=== PATIENT | male | born 1940 | race Caucasian/White ===

== ENCOUNTER 2019-08-27 11:38 | Inpatient (IN) ==
[2019-08-29] MEDS ORDERED: D5% in Water 1,000 ML IVC PRN (16:34)
[2019-08-29] MEDS ORDERED: Dextrose Gel 15 GM/37.5 ML TUBE PO PRN ×2 (16:34)
[2019-08-29] MEDS ORDERED: *HR* Dextrose 50 % in Water (Syg) 50 ML SYRINGE IVP PRN (16:34)
[2019-08-29] MEDS ORDERED: Hyoscyamine SL 0.125 MG TAB.SUBL GTUBE PRN (16:37)
[2019-08-29] MEDS ORDERED: Ipratropium/Albuterol Neb 3 ML IH PRN (16:37)
[2019-08-29] MEDS ORDERED: *HR* Alteplase (Cathflo) 2 MG VIAL IVP PRN (16:37)
[2019-08-29] MEDS ORDERED: ALPRAZolam 0.25 MG TABLET GTUBE PRN (16:37)
[2019-08-29] MEDS ORDERED: Saliva Stimulant 100ml BOTTLE MM PRN (16:37)
[2019-08-29] MEDS: *HR* Heparin 5,000 UNIT/ML VIAL SQ SCH (22:11)
[2019-08-29] MEDS: Melatonin 3 MG TABLET GTUBE SCH (22:11)
[2019-08-29] MEDS: Celecoxib 100 MG CAPSULE PO SCH (22:11)
[2019-08-29] MEDS: Lactobacillus 1 EACH CAP.SPRINK GTUBE SCH (22:11)
[2019-08-29] MEDS: Potassium Chloride Elixir 20 MEQ/15 ML UDC GTUBE SCH (22:12)
[2019-08-30] MEDS: Fluconazole 400 MG/200 ML 400 MG/200 ML BAG IVPB SCH (01:20)
[2019-08-30] MEDS: *HR* Heparin 5,000 UNIT/ML VIAL SQ SCH ×3 (05:41→23:10)
[2019-08-30] MEDS: *HR* HYDROcodone/Acet 5/325 mg TABLET PO PRN ×2 (05:41→16:40)
[2019-08-30 05:54] LABS: Basophils # 0.1 K/mcL (0.0-0.2); Basophils % 0.6 %; Eosinophils # 0.6 K/mcL (0.0-0.6); Eosinophils % 4.1 %; Hematocrit 23.3 % (37.5-50.1); Hemoglobin 7.6 g/dL (12.9-16.9); Immature Granulocytes % 8.6 % (0-4); Mean Corpuscular HGB Conc 32.6 g/dL (31.6-35.5); Mean Corpuscular Hemoglobin 27.5 pg (28.0-33.3); Mean Corpuscular Volume 84.4 fL (83.0-100.0); Mean Platelet Volume 8.5 fL (9.4-12.4); Monocytes # 1.7 K/mcL (0.0-1.3); Monocytes % 10.8 %; Neutrophils # 7.7 K/mcL (1.6-8.9); Platelet Count 409 K/mcL (140-400); Red Blood Count 2.76 M/mcL (4.19-5.50); Red Cell Distribution Width 16.7 % (11.5-14.5); Segmented Neutrophils % 49.9 %; White Blood Count 15.4 K/mcL (4.3-11.1)
[2019-08-30] MEDS: Insulin LISPRO 300 UNITS/3 ML VIAL SQ SCH ×3 (08:31→16:41)
[2019-08-30] MEDS: carvediloL 6.25 MG TABLET GTUBE SCH ×2 (08:40→16:40)
[2019-08-30] MEDS: Lactobacillus 1 EACH CAP.SPRINK GTUBE SCH ×2 (08:40→23:09)
[2019-08-30] MEDS: Trolamine Salicylate/Aloe Vera 85 APPL/85 GM TUBE TP SCH (08:40)
[2019-08-30] MEDS: Potassium Chloride Elixir 20 MEQ/15 ML UDC GTUBE SCH ×2 (08:40→23:10)
[2019-08-30] MEDS: Furosemide 40 MG TABLET PO SCH (08:40)
[2019-08-30] MEDS: Ferrous Sulfate Oral Soln 300 MG/5 ML UDC GTUBE SCH ×3 (08:42→23:10)
[2019-08-30] MEDS ORDERED: Pantoprazole 40 MG VIAL IVC SCH (09:00)
[2019-08-30] MEDS ORDERED: ANIDULAFUNGIN 100 MG IV SCH (09:00)
[2019-08-30 12:53] LABS: Alanine Aminotransferase 109 Units/L (7-52); Albumin 2.6 g/dL (3.5-5.7); Albumin/Globulin Ratio 0.8 (1.1-2.2); Alkaline Phosphatase 120 Units/L (34-104); Aspartate Amino Transferase 97 Units/L (13-39); BUN/Creatinine Ratio 24 (6-26); Bilirubin,Total 0.3 mg/dL (0.3-1.0); Blood Urea Nitrogen 18 mg/dL (8-23); Carbon Dioxide 28 mEq/L (23-29); Chloride 90 mEq/L (98-107); Globulin 3.4 g/dL (2.4-3.5); Glucose 100 mg/dL (70-105); Osmolality,Calculated 268 (280-300); Potassium 4.4 mEq/L (3.5-5.1); Sodium 128 mEq/L (136-145); eGFR For African Americans > 60 (> 60); eGFR For Non-African Americans > 60 (> 60)
[2019-08-30] MEDS: Pantoprazole 40 MG VIAL IVP SCH (13:41)
[2019-08-30] MEDS: Celecoxib 100 MG CAPSULE PO SCH (23:09)
[2019-08-30] MEDS: Melatonin 3 MG TABLET GTUBE SCH (23:10)
[2019-08-31] MEDS: Fluconazole 400 MG/200 ML 400 MG/200 ML BAG IVPB SCH (00:25)
[2019-08-31] MEDS: *HR* Heparin 5,000 UNIT/ML VIAL SQ SCH ×3 (06:07→22:45)
[2019-08-31 06:11] LABS: Thyroid Stimulating Hormone 74.002 mcIU/mL (0.340-5.600)
[2019-08-31] MEDS: Insulin LISPRO 300 UNITS/3 ML VIAL SQ SCH ×3 (08:17→17:38)
[2019-08-31] MEDS: Potassium Chloride Elixir 20 MEQ/15 ML UDC GTUBE SCH ×2 (08:18→22:45)
[2019-08-31] MEDS: Pantoprazole 40 MG VIAL IVP SCH (08:19)
[2019-08-31] MEDS: carvediloL 6.25 MG TABLET GTUBE SCH ×2 (08:19→17:40)
[2019-08-31] MEDS: Lactobacillus 1 EACH CAP.SPRINK GTUBE SCH ×2 (08:19→22:45)
[2019-08-31] MEDS: Ferrous Sulfate Oral Soln 300 MG/5 ML UDC GTUBE SCH ×3 (08:19→22:45)
[2019-08-31] MEDS: Trolamine Salicylate/Aloe Vera 85 APPL/85 GM TUBE TP SCH (08:19)
[2019-08-31] MEDS: Furosemide 40 MG TABLET PO SCH (08:19)
[2019-08-31] MEDS: Melatonin 3 MG TABLET GTUBE SCH (22:45)
[2019-08-31] MEDS: Celecoxib 100 MG CAPSULE PO SCH (22:45)
[2019-09-01] MEDS: Fluconazole 400 MG/200 ML 400 MG/200 ML BAG IVPB SCH
[2019-09-01] MEDS: *HR* Heparin 5,000 UNIT/ML VIAL SQ SCH ×3 (06:45→21:02)
[2019-09-01] MEDS ORDERED: Thyroid (Amour) 30 MG TABLET PO SCH ×2 (09:00)
[2019-09-01] MEDS: Insulin LISPRO 300 UNITS/3 ML VIAL SQ SCH ×3 (09:19→17:25)
[2019-09-01] MEDS: Ferrous Sulfate Oral Soln 300 MG/5 ML UDC GTUBE SCH ×3 (09:22→21:01)
[2019-09-01] MEDS: Trolamine Salicylate/Aloe Vera 85 APPL/85 GM TUBE TP SCH (09:22)
[2019-09-01] MEDS: Lactobacillus 1 EACH CAP.SPRINK GTUBE SCH ×2 (09:22→21:02)
[2019-09-01] MEDS: carvediloL 6.25 MG TABLET GTUBE SCH ×2 (09:22→17:33)
[2019-09-01] MEDS: Potassium Chloride Elixir 20 MEQ/15 ML UDC GTUBE SCH ×2 (09:22→21:01)
[2019-09-01] MEDS: Furosemide 40 MG TABLET PO SCH (09:22)
[2019-09-01] MEDS: Pantoprazole 40 MG VIAL IVP SCH (09:22)
[2019-09-01] MEDS: Thyroid (Amour) 30 MG TABLET PO SCH ×2 (11:37→23:22)
[2019-09-01] MEDS: Melatonin 3 MG TABLET GTUBE SCH (21:03)
[2019-09-01] MEDS: Celecoxib 100 MG CAPSULE PO SCH (21:03)
[2019-09-01] MEDS: Micafungin 100 MG in 0.9 % Sodium Chloride Mini Bag 100 ML IVPB SCH (23:22)
[2019-09-02] MEDS: *HR* Heparin 5,000 UNIT/ML VIAL SQ SCH ×3 (05:22→22:33)
[2019-09-02 05:31] LABS: Hematocrit 22.9 % (37.5-50.1); Hemoglobin 7.4 g/dL (12.9-16.9); Mean Corpuscular HGB Conc 32.3 g/dL (31.6-35.5); Mean Corpuscular Hemoglobin 27.8 pg (28.0-33.3); Mean Corpuscular Volume 86.1 fL (83.0-100.0); Mean Platelet Volume 8.1 fL (9.4-12.4); Platelet Count 422 K/mcL (140-400); Red Blood Count 2.66 M/mcL (4.19-5.50); Red Cell Distribution Width 17.1 % (11.5-14.5); White Blood Count 16.3 K/mcL (4.3-11.1)
[2019-09-02 05:45] LABS: Alanine Aminotransferase 74 Units/L (7-52); Albumin 2.5 g/dL (3.5-5.7); Albumin/Globulin Ratio 0.8 (1.1-2.2); Alkaline Phosphatase 136 Units/L (34-104); Aspartate Amino Transferase 49 Units/L (13-39); BUN/Creatinine Ratio 24 (6-26); Bilirubin,Total 0.2 mg/dL (0.3-1.0); Blood Urea Nitrogen 20 mg/dL (8-23); Carbon Dioxide 31 mEq/L (23-29); Chloride 91 mEq/L (98-107); Globulin 3.2 g/dL (2.4-3.5); Glucose 127 mg/dL (70-105); Magnesium 2.2 mg/dL (1.6-2.6); Osmolality,Calculated 268 (280-300); Potassium 4.6 mEq/L (3.5-5.1); Sodium 127 mEq/L (136-145); Total Protein 5.7 g/dL (6.4-8.9); eGFR For African Americans > 60 (> 60); eGFR For Non-African Americans > 60 (> 60)
[2019-09-02] MEDS: Potassium Chloride Elixir 20 MEQ/15 ML UDC GTUBE SCH ×2 (09:03→21:52)
[2019-09-02] MEDS: Lactobacillus 1 EACH CAP.SPRINK GTUBE SCH ×2 (09:04→21:52)
[2019-09-02] MEDS: Furosemide 40 MG TABLET PO SCH (09:04)
[2019-09-02] MEDS: carvediloL 6.25 MG TABLET GTUBE SCH ×2 (09:04→15:26)
[2019-09-02] MEDS: Ferrous Sulfate Oral Soln 300 MG/5 ML UDC GTUBE SCH ×3 (09:04→21:52)
[2019-09-02] MEDS: Pantoprazole 40 MG VIAL IVP SCH (09:05)
[2019-09-02 09:08] LABS: Bilirubin,Urine Negative (Negative); Blood,Urine Negative (Negative); Clarity,Urine Clear (Clear); Color,Urine Yellow (Yellow); Glucose,Urine (UA) Normal (Normal); Ketones,Urine Negative (Negative); Leukocyte Esterase,Urine Negative (Negative); Nitrite,Urine Negative (Negative); Protein,Urine Negative (Neg-Trace); Specific Gravity,Urine 1.015 (1.010-1.025); Urobilinogen,Urine Normal (Normal)
[2019-09-02] MEDS: Thyroid (Amour) 30 MG TABLET PO SCH ×2 (09:14→21:51)
[2019-09-02] MEDS: Insulin LISPRO 300 UNITS/3 ML VIAL SQ SCH ×2 (09:14→12:00)
[2019-09-02] MEDS: Trolamine Salicylate/Aloe Vera 85 APPL/85 GM TUBE TP SCH (09:14)
[2019-09-02] MEDS: Celecoxib 100 MG CAPSULE PO SCH (21:51)
[2019-09-02] MEDS: Melatonin 3 MG TABLET GTUBE SCH (21:52)
[2019-09-03] MEDS: Micafungin 100 MG in 0.9 % Sodium Chloride Mini Bag 100 ML IVPB SCH (00:28)
[2019-09-03] MEDS: *HR* Heparin 5,000 UNIT/ML VIAL SQ SCH ×3 (05:13→21:55)
[2019-09-03] MEDS ORDERED: Acetaminophen 325 MG TABLET PO PRN (07:42)
[2019-09-03] MEDS ORDERED: Acetaminophen 650 MG RECTAL SUPP RC PRN (07:51)
[2019-09-03 08:04] LABS: Basophils # 0.1 K/mcL (0.0-0.2); Basophils % 0.4 %; Eosinophils # 0.6 K/mcL (0.0-0.6); Eosinophils % 3.7 %; Hematocrit 24.2 % (37.5-50.1); Hemoglobin 7.9 g/dL (12.9-16.9); Immature Granulocytes % 8.5 % (0-4); Lymphocytes # 4.1 K/mcL (0.6-4.6); Lymphocytes % 24.1 %; Mean Corpuscular HGB Conc 32.6 g/dL (31.6-35.5); Mean Corpuscular Hemoglobin 27.6 pg (28.0-33.3); Mean Corpuscular Volume 84.6 fL (83.0-100.0); Mean Platelet Volume 8.2 fL (9.4-12.4); Monocytes # 1.8 K/mcL (0.0-1.3); Monocytes % 10.9 %; Neutrophils # 8.8 K/mcL (1.6-8.9); Platelet Count 480 K/mcL (140-400); Red Blood Count 2.86 M/mcL (4.19-5.50); Red Cell Distribution Width 16.9 % (11.5-14.5); Segmented Neutrophils % 52.4 %; White Blood Count 16.8 K/mcL (4.3-11.1)
[2019-09-03 08:17] LABS: Alanine Aminotransferase 74 Units/L (7-52); Albumin 2.6 g/dL (3.5-5.7); Albumin/Globulin Ratio 0.8 (1.1-2.2); Alkaline Phosphatase 137 Units/L (34-104); Aspartate Amino Transferase 50 Units/L (13-39); BUN/Creatinine Ratio 23 (6-26); Bilirubin,Total 0.3 mg/dL (0.3-1.0); Blood Urea Nitrogen 20 mg/dL (8-23); Calcium 8.3 mg/dL (8.6-10.3); Carbon Dioxide 30 mEq/L (23-29); Chloride 91 mEq/L (98-107); Globulin 3.3 g/dL (2.4-3.5); Glucose 96 mg/dL (70-105); Osmolality,Calculated 268 (280-300); Potassium 4.8 mEq/L (3.5-5.1); Sodium 128 mEq/L (136-145); Total Protein 5.9 g/dL (6.4-8.9); eGFR For African Americans > 60 (> 60); eGFR For Non-African Americans > 60 (> 60)
[2019-09-03] MEDS: carvediloL 6.25 MG TABLET GTUBE SCH ×2 (11:00→18:19)
[2019-09-03] MEDS: Lactobacillus 1 EACH CAP.SPRINK GTUBE SCH ×2 (11:01→21:55)
[2019-09-03] MEDS: Trolamine Salicylate/Aloe Vera 85 APPL/85 GM TUBE TP SCH (11:01)
[2019-09-03] MEDS: Ferrous Sulfate Oral Soln 300 MG/5 ML UDC GTUBE SCH ×3 (11:01→21:55)
[2019-09-03] MEDS: Thyroid (Amour) 30 MG TABLET PO SCH ×2 (11:01→21:55)
[2019-09-03] MEDS: Pantoprazole 40 MG VIAL IVP SCH (11:02)
[2019-09-03] MEDS: Potassium Chloride Elixir 20 MEQ/15 ML UDC GTUBE SCH ×2 (11:02→21:55)
[2019-09-03] MEDS: Furosemide 40 MG TABLET PO SCH (11:02)
[2019-09-03] MEDS: 0.9 % Sodium Chloride 1,000 ML IVC SCH (14:28)
[2019-09-03] MEDS: Celecoxib 100 MG CAPSULE PO SCH (21:55)
[2019-09-03] MEDS: Melatonin 3 MG TABLET GTUBE SCH (21:55)
[2019-09-04] MEDS: Micafungin 100 MG in 0.9 % Sodium Chloride Mini Bag 100 ML IVPB SCH (00:30)
[2019-09-04] MEDS: 0.9 % Sodium Chloride 1,000 ML IVC SCH ×2 (03:10→18:11)
[2019-09-04] MEDS: *HR* Heparin 5,000 UNIT/ML VIAL SQ SCH ×3 (05:31→22:08)
[2019-09-04] MEDS: carvediloL 6.25 MG TABLET GTUBE SCH ×3 (09:51→18:10)
[2019-09-04] MEDS: Thyroid (Amour) 30 MG TABLET PO SCH ×3 (09:52→22:06)
[2019-09-04] MEDS: Lactobacillus 1 EACH CAP.SPRINK GTUBE SCH ×2 (09:53→22:06)
[2019-09-04] MEDS: Ferrous Sulfate Oral Soln 300 MG/5 ML UDC GTUBE SCH ×3 (09:53→22:07)
[2019-09-04] MEDS: Furosemide 40 MG TABLET PO SCH ×2 (09:53→11:06)
[2019-09-04] MEDS: Trolamine Salicylate/Aloe Vera 85 APPL/85 GM TUBE TP SCH (09:53)
[2019-09-04] MEDS: Potassium Chloride Elixir 20 MEQ/15 ML UDC GTUBE SCH ×2 (09:54→22:07)
[2019-09-04] MEDS: Pantoprazole 40 MG VIAL IVP SCH ×2 (09:54→11:05)
[2019-09-04] MEDS ORDERED: Furosemide 40 MG/4 ML VIAL IVP ONE (12:32)
[2019-09-04] MEDS: levoFLOXacin 500 MG/100 ML 500 MG/100 ML BAG IVPB SCH (14:43)
[2019-09-04] MEDS ORDERED: Acetaminophen 650 MG RECTAL SUPP RC PRN (21:56)
[2019-09-04] MEDS: Celecoxib 100 MG CAPSULE PO SCH (22:06)
[2019-09-04] MEDS: Melatonin 3 MG TABLET GTUBE SCH (22:07)
[2019-09-05] MEDS: Micafungin 100 MG in 0.9 % Sodium Chloride Mini Bag 100 ML IVPB SCH (00:38)
[2019-09-05] MEDS: *HR* Heparin 5,000 UNIT/ML VIAL SQ SCH ×3 (05:16→22:11)
[2019-09-05] MEDS: 0.9 % Sodium Chloride 1,000 ML IVC SCH ×2 (09:11→18:31)
[2019-09-05] MEDS: levoFLOXacin 500 MG/100 ML 500 MG/100 ML BAG IVPB SCH (09:12)
[2019-09-05] MEDS: Pantoprazole 40 MG VIAL IVP SCH (09:12)
[2019-09-05] MEDS: Trolamine Salicylate/Aloe Vera 85 APPL/85 GM TUBE TP SCH (09:29)
[2019-09-05] MEDS: Potassium Chloride Elixir 20 MEQ/15 ML UDC GTUBE SCH (10:41)
[2019-09-05] MEDS: carvediloL 6.25 MG TABLET GTUBE SCH ×2 (10:41→18:41)
[2019-09-05] MEDS: Furosemide 40 MG TABLET PO SCH (10:42)
[2019-09-05] MEDS: Thyroid (Amour) 30 MG TABLET PO SCH ×2 (10:42→19:53)
[2019-09-05] MEDS: Ferrous Sulfate Oral Soln 300 MG/5 ML UDC GTUBE SCH ×2 (10:42→18:41)
[2019-09-05] MEDS: Lactobacillus 1 EACH CAP.SPRINK GTUBE SCH (10:42)
[2019-09-05] MEDS: *HR* HYDROcodone/Acet 5/325 mg TABLET GTUBE PRN (11:26)
[2019-09-05 12:47] LABS: Alanine Aminotransferase 75 Units/L (7-52); Albumin 2.5 g/dL (3.5-5.7); Albumin/Globulin Ratio 0.7 (1.1-2.2); Alkaline Phosphatase 118 Units/L (34-104); Aspartate Amino Transferase 53 Units/L (13-39); BUN/Creatinine Ratio 14 (6-26); Bilirubin,Total 0.4 mg/dL (0.3-1.0); Blood Urea Nitrogen 13 mg/dL (8-23); Calcium 8.1 mg/dL (8.6-10.3); Carbon Dioxide 26 mEq/L (23-29); Chloride 95 mEq/L (98-107); Globulin 3.4 g/dL (2.4-3.5); Glucose 90 mg/dL (70-105); Osmolality,Calculated 268 (280-300); Potassium 4.2 mEq/L (3.5-5.1); Sodium 129 mEq/L (136-145); Total Protein 5.9 g/dL (6.4-8.9); eGFR For African Americans > 60 (> 60); eGFR For Non-African Americans > 60 (> 60)
[2019-09-05 12:58] LABS: Basophils # 0.1 K/mcL (0.0-0.2); Basophils % 0.4 %; Eosinophils # 0.4 K/mcL (0.0-0.6); Eosinophils % 3.2 %; Hematocrit 22.3 % (37.5-50.1); Hemoglobin 7.1 g/dL (12.9-16.9); Immature Granulocytes % 7.1 % (0-4); Lymphocytes # 2.9 K/mcL (0.6-4.6); Lymphocytes % 24.2 %; Mean Corpuscular HGB Conc 31.8 g/dL (31.6-35.5); Mean Corpuscular Volume 84.8 fL (83.0-100.0); Mean Platelet Volume 8.5 fL (9.4-12.4); Monocytes # 1.4 K/mcL (0.0-1.3); Monocytes % 11.8 %; Platelet Count 516 K/mcL (140-400); Red Blood Count 2.63 M/mcL (4.19-5.50); Red Cell Distribution Width 16.8 % (11.5-14.5); Segmented Neutrophils % 53.3 %; White Blood Count 11.9 K/mcL (4.3-11.1)
[2019-09-05 13:29] LABS: Neutrophils # 6.3 K/mcL (1.6-8.9)
[2019-09-05] MEDS: Melatonin 3 MG TABLET PO SCH (19:53)
[2019-09-05] MEDS: Lactobacillus 1 EACH CAP.SPRINK PO SCH (19:53)
[2019-09-05] MEDS: Celecoxib 100 MG CAPSULE PO SCH (19:53)
[2019-09-05] MEDS: Potassium Chloride Elixir 20 MEQ/15 ML UDC PO SCH (19:54)
[2019-09-05] MEDS: Ferrous Sulfate Oral Soln 300 MG/5 ML UDC PO SCH (19:54)
[2019-09-06] MEDS: Micafungin 100 MG in 0.9 % Sodium Chloride Mini Bag 100 ML IVPB SCH (00:08)
[2019-09-06] MEDS: *HR* Heparin 5,000 UNIT/ML VIAL SQ SCH ×3 (06:14→22:28)
[2019-09-06] MEDS: Potassium Chloride Elixir 20 MEQ/15 ML UDC PO SCH ×2 (09:21→20:46)
[2019-09-06] MEDS: carvediloL 6.25 MG TABLET PO SCH ×2 (09:21→16:20)
[2019-09-06] MEDS: Thyroid (Amour) 30 MG TABLET PO SCH ×2 (09:21→20:46)
[2019-09-06] MEDS: Lactobacillus 1 EACH CAP.SPRINK PO SCH ×2 (09:21→20:47)
[2019-09-06] MEDS: Trolamine Salicylate/Aloe Vera 85 APPL/85 GM TUBE TP SCH (09:22)
[2019-09-06] MEDS: Ferrous Sulfate Oral Soln 300 MG/5 ML UDC PO SCH ×3 (09:22→20:46)
[2019-09-06] MEDS: Furosemide 40 MG TABLET PO SCH (09:22)
[2019-09-06] MEDS: Pantoprazole 40 MG VIAL IVP SCH (09:22)
[2019-09-06] MEDS ORDERED: Water for inj. (sterile) 10 ML ONE (10:40)
[2019-09-06] MEDS: levoFLOXacin 750 MG/150 ML 750 MG/150 ML BAG IVPB SCH (11:42)
[2019-09-06] MEDS: Melatonin 3 MG TABLET PO SCH (20:47)
[2019-09-06] MEDS: Celecoxib 100 MG CAPSULE PO SCH (20:47)
[2019-09-06] MEDS: *HR* HYDROcodone/Acet 5/325 mg TABLET GTUBE PRN (22:38)
[2019-09-07] MEDS: Micafungin 100 MG in 0.9 % Sodium Chloride Mini Bag 100 ML IVPB SCH (00:13)
[2019-09-07] MEDS: *HR* Heparin 5,000 UNIT/ML VIAL SQ SCH ×3 (06:11→20:59)
[2019-09-07] MEDS: Ferrous Sulfate Oral Soln 300 MG/5 ML UDC PO SCH (08:34)
[2019-09-07] MEDS: Potassium Chloride Elixir 20 MEQ/15 ML UDC PO SCH (08:34)
[2019-09-07] MEDS: carvediloL 6.25 MG TABLET PO SCH ×2 (08:35→17:03)
[2019-09-07] MEDS: Furosemide 40 MG TABLET PO SCH (08:35)
[2019-09-07] MEDS: Thyroid (Amour) 30 MG TABLET PO SCH ×2 (08:35→20:59)
[2019-09-07] MEDS: Lactobacillus 1 EACH CAP.SPRINK PO SCH ×2 (08:35→20:59)
[2019-09-07] MEDS: Trolamine Salicylate/Aloe Vera 85 APPL/85 GM TUBE TP SCH (08:40)
[2019-09-07] MEDS: levoFLOXacin 750 MG/150 ML 750 MG/150 ML BAG IVPB SCH (12:57)
[2019-09-07] MEDS: Acetaminophen 325 MG TABLET PO PRN (18:27)
[2019-09-07] MEDS: Melatonin 3 MG TABLET PO SCH (20:59)
[2019-09-07] MEDS: Celecoxib 100 MG CAPSULE PO SCH (20:59)
[2019-09-08] MEDS: Micafungin 100 MG in 0.9 % Sodium Chloride Mini Bag 100 ML IVPB SCH (00:20)
[2019-09-08] MEDS: *HR* Heparin 5,000 UNIT/ML VIAL SQ SCH ×3 (05:58→21:04)
[2019-09-08] MEDS: Acetaminophen 325 MG TABLET PO PRN ×2 (05:59→21:03)
[2019-09-08] MEDS: carvediloL 6.25 MG TABLET PO SCH ×2 (08:12→17:14)
[2019-09-08] MEDS: Furosemide 40 MG TABLET PO SCH (08:12)
[2019-09-08] MEDS: Lactobacillus 1 EACH CAP.SPRINK PO SCH ×2 (08:12→21:04)
[2019-09-08] MEDS: Thyroid (Amour) 30 MG TABLET PO SCH ×2 (08:12→21:04)
[2019-09-08] MEDS: Trolamine Salicylate/Aloe Vera 85 APPL/85 GM TUBE TP SCH (09:54)
[2019-09-08] MEDS: levoFLOXacin 750 MG/150 ML 750 MG/150 ML BAG IVPB SCH (11:16)
[2019-09-08] MEDS: Celecoxib 100 MG CAPSULE PO SCH (21:03)
[2019-09-08] MEDS: Melatonin 3 MG TABLET PO SCH (21:04)
[2019-09-09] MEDS: Micafungin 100 MG in 0.9 % Sodium Chloride Mini Bag 100 ML IVPB SCH ×2 (01:03→23:57)
[2019-09-09] MEDS: Acetaminophen 325 MG TABLET PO PRN (05:22)
[2019-09-09] MEDS: *HR* Heparin 5,000 UNIT/ML VIAL SQ SCH ×3 (05:23→20:43)
[2019-09-09] MEDS: carvediloL 6.25 MG TABLET PO SCH ×2 (10:08→18:53)
[2019-09-09] MEDS: Lactobacillus 1 EACH CAP.SPRINK PO SCH ×2 (10:09→20:42)
[2019-09-09] MEDS: Furosemide 40 MG TABLET PO SCH (10:09)
[2019-09-09] MEDS: Thyroid (Amour) 30 MG TABLET PO SCH ×2 (10:09→20:43)
[2019-09-09] MEDS: levoFLOXacin 750 MG/150 ML 750 MG/150 ML BAG IVPB SCH (14:54)
[2019-09-09] MEDS: Trolamine Salicylate/Aloe Vera 85 APPL/85 GM TUBE TP SCH (18:52)
[2019-09-09] MEDS: *HR* HYDROcodone/Acet 5/325 mg TABLET GTUBE PRN (19:12)
[2019-09-09] MEDS: traZODone 50 MG TABLET PO PRN (20:42)
[2019-09-09] MEDS: ALPRAZolam 0.25 MG TABLET PO PRN (20:43)
[2019-09-09] MEDS: Celecoxib 100 MG CAPSULE PO SCH (20:43)
[2019-09-09] MEDS: Melatonin 3 MG TABLET PO SCH (20:43)
[2019-09-10] MEDS: *HR* Heparin 5,000 UNIT/ML VIAL SQ SCH ×3 (06:34→21:53)
[2019-09-10] MEDS: Thyroid (Amour) 30 MG TABLET PO SCH ×2 (07:55→21:53)
[2019-09-10] MEDS: carvediloL 6.25 MG TABLET PO SCH ×2 (07:55→17:09)
[2019-09-10] MEDS: Furosemide 40 MG TABLET PO SCH (07:55)
[2019-09-10] MEDS: Lactobacillus 1 EACH CAP.SPRINK PO SCH ×2 (07:55→21:53)
[2019-09-10] MEDS: Trolamine Salicylate/Aloe Vera 85 APPL/85 GM TUBE TP SCH (07:56)
[2019-09-10] MEDS: *HR* HYDROcodone/Acet 5/325 mg TABLET GTUBE PRN (09:53)
[2019-09-10] MEDS: levoFLOXacin 750 MG/150 ML 750 MG/150 ML BAG IVPB SCH (13:07)
[2019-09-10] MEDS: ALPRAZolam 0.25 MG TABLET PO PRN (21:52)
[2019-09-10] MEDS: Celecoxib 100 MG CAPSULE PO SCH (21:53)
[2019-09-10] MEDS: traZODone 50 MG TABLET PO PRN (21:53)
[2019-09-10] MEDS: Melatonin 3 MG TABLET PO SCH (21:53)
[2019-09-10] MEDS: Micafungin 100 MG in 0.9 % Sodium Chloride Mini Bag 100 ML IVPB SCH (23:37)
[2019-09-11] MEDS: *HR* Heparin 5,000 UNIT/ML VIAL SQ SCH ×3 (04:47→21:40)
[2019-09-11 05:15] LABS: Basophils # 0.1 K/mcL (0.0-0.2); Basophils % 0.8 %; Eosinophils # 0.4 K/mcL (0.0-0.6); Eosinophils % 4.6 %; Hematocrit 21.2 % (37.5-50.1); Hemoglobin 6.8 g/dL (12.9-16.9); Immature Granulocytes % 3.8 % (0-4); Lymphocytes # 2.7 K/mcL (0.6-4.6); Lymphocytes % 29.2 %; Mean Corpuscular HGB Conc 32.1 g/dL (31.6-35.5); Mean Corpuscular Hemoglobin 27.1 pg (28.0-33.3); Mean Corpuscular Volume 84.5 fL (83.0-100.0); Mean Platelet Volume 8.4 fL (9.4-12.4); Monocytes # 1.3 K/mcL (0.0-1.3); Monocytes % 14.4 %; Neutrophils # 4.4 K/mcL (1.6-8.9); Platelet Count 322 K/mcL (140-400); Red Blood Count 2.51 M/mcL (4.19-5.50); Red Cell Distribution Width 16.7 % (11.5-14.5); Segmented Neutrophils % 47.2 %; White Blood Count 9.3 K/mcL (4.3-11.1)
[2019-09-11 05:29] LABS: Alanine Aminotransferase 55 Units/L (7-52); Albumin 2.3 g/dL (3.5-5.7); Albumin/Globulin Ratio 0.8 (1.1-2.2); Alkaline Phosphatase 110 Units/L (34-104); Aspartate Amino Transferase 33 Units/L (13-39); BUN/Creatinine Ratio 17 (6-26); Bilirubin,Total 0.3 mg/dL (0.3-1.0); Blood Urea Nitrogen 10 mg/dL (8-23); Carbon Dioxide 27 mEq/L (23-29); Chloride 97 mEq/L (98-107); Glucose 93 mg/dL (70-105); Magnesium 1.4 mg/dL (1.6-2.6); Osmolality,Calculated 273 (280-300); Potassium 3.6 mEq/L (3.5-5.1); Sodium 132 mEq/L (136-145); Total Protein 5.3 g/dL (6.4-8.9); eGFR For African Americans > 60 (> 60); eGFR For Non-African Americans > 60 (> 60)
[2019-09-11 06:05] LABS: Platelet Estimate Normal (Normal)
[2019-09-11 06:06] LABS: Hypochromasia Present (Not Present)
[2019-09-11] MEDS: carvediloL 6.25 MG TABLET PO SCH ×2 (10:23→16:40)
[2019-09-11] MEDS: Lactobacillus 1 EACH CAP.SPRINK PO SCH ×2 (10:24→21:38)
[2019-09-11] MEDS: Thyroid (Amour) 30 MG TABLET PO SCH ×3 (10:24→21:39)
[2019-09-11] MEDS: Furosemide 40 MG TABLET PO SCH (10:24)
[2019-09-11] MEDS: Trolamine Salicylate/Aloe Vera 85 APPL/85 GM TUBE TP SCH (10:25)
[2019-09-11] MEDS: *HR* HYDROcodone/Acet 5/325 mg TABLET PO PRN (11:56)
[2019-09-11] MEDS: levoFLOXacin 750 MG/150 ML 750 MG/150 ML BAG IVPB SCH (11:57)
[2019-09-11] MEDS ORDERED: 0.9 % Sodium Chloride 250 ML IVC SCH (18:15)
[2019-09-11] MEDS: ALPRAZolam 0.25 MG TABLET PO PRN (21:38)
[2019-09-11] MEDS: traZODone 50 MG TABLET PO PRN (21:39)
[2019-09-11] MEDS: Ascorbic Acid 500 MG TABLET PO SCH (21:39)
[2019-09-11] MEDS: Acetaminophen 325 MG TABLET PO PRN (21:39)
[2019-09-11] MEDS: Celecoxib 100 MG CAPSULE PO SCH (21:39)
[2019-09-11] MEDS: Melatonin 3 MG TABLET PO SCH (21:39)
[2019-09-12] MEDS: Micafungin 100 MG in 0.9 % Sodium Chloride Mini Bag 100 ML IVPB SCH (00:39)
[2019-09-12] MEDS: *HR* Heparin 5,000 UNIT/ML VIAL SQ SCH ×2 (05:13→12:47)
[2019-09-12 06:15] LABS: Basophils # 0.1 K/mcL (0.0-0.2); Eosinophils # 0.4 K/mcL (0.0-0.6); Eosinophils % 4.9 %; Hematocrit 25.1 % (37.5-50.1); Immature Granulocytes % 3.8 % (0-4); Immature Reticulocyte % 24.2 % (11.0-38.0); Lymphocytes # 2.5 K/mcL (0.6-4.6); Lymphocytes % 28.6 %; Mean Corpuscular HGB Conc 31.9 g/dL (31.6-35.5); Mean Corpuscular Hemoglobin 26.7 pg (28.0-33.3); Mean Corpuscular Volume 83.7 fL (83.0-100.0); Mean Platelet Volume 8.1 fL (9.4-12.4); Monocytes # 1.5 K/mcL (0.0-1.3); Monocytes % 16.7 %; Neutrophils # 3.9 K/mcL (1.6-8.9); Platelet Count 283 K/mcL (140-400); Red Cell Distribution Width 16.9 % (11.5-14.5); Retculocyte # 0.06 M/mcL (0.05-0.10); Reticulocyte % 1.9 % (1.6-2.8); White Blood Count 8.7 K/mcL (4.3-11.1)
[2019-09-12 08:30] LABS: % Iron Saturation 18 % (20-55); Iron 35 mcg/dL (65-175); Transferrin 136 mg/dL (203-362)
[2019-09-12] MEDS: Lactobacillus 1 EACH CAP.SPRINK PO SCH ×2 (09:15→20:07)
[2019-09-12] MEDS: Ascorbic Acid 500 MG TABLET PO SCH ×2 (09:15→20:07)
[2019-09-12] MEDS: Trolamine Salicylate/Aloe Vera 85 APPL/85 GM TUBE TP SCH (09:15)
[2019-09-12] MEDS: Furosemide 40 MG TABLET PO SCH (09:15)
[2019-09-12] MEDS: Thyroid (Amour) 30 MG TABLET PO SCH ×3 (09:15→20:07)
[2019-09-12] MEDS: carvediloL 6.25 MG TABLET PO SCH ×2 (09:15→16:35)
[2019-09-12] MEDS: levoFLOXacin 750 MG/150 ML 750 MG/150 ML BAG IVPB SCH (12:46)
[2019-09-12] MEDS: Celecoxib 100 MG CAPSULE PO SCH (20:07)
[2019-09-12] MEDS: Acetaminophen 325 MG TABLET PO PRN (20:07)
[2019-09-12] MEDS: Melatonin 3 MG TABLET PO SCH (20:07)
[2019-09-13] MEDS: Micafungin 100 MG in 0.9 % Sodium Chloride Mini Bag 100 ML IVPB SCH ×2 (00:40→23:50)
[2019-09-13] MEDS: *HR* Heparin 5,000 UNIT/ML VIAL SQ SCH ×4 (00:40→21:05)
[2019-09-13 05:22] LABS: Alanine Aminotransferase 46 Units/L (7-52); Albumin 2.3 g/dL (3.5-5.7); Albumin/Globulin Ratio 0.8 (1.1-2.2); Alkaline Phosphatase 104 Units/L (34-104); Aspartate Amino Transferase 29 Units/L (13-39); BUN/Creatinine Ratio 13 (6-26); Bilirubin,Total 0.3 mg/dL (0.3-1.0); Blood Urea Nitrogen 10 mg/dL (8-23); Calcium 8.1 mg/dL (8.6-10.3); Carbon Dioxide 27 mEq/L (23-29); Chloride 96 mEq/L (98-107); Glucose 90 mg/dL (70-105); Magnesium 1.4 mg/dL (1.6-2.6); Osmolality,Calculated 269 (280-300); Potassium 3.6 mEq/L (3.5-5.1); Sodium 130 mEq/L (136-145); Total Protein 5.3 g/dL (6.4-8.9); eGFR For African Americans > 60 (> 60); eGFR For Non-African Americans > 60 (> 60)
[2019-09-13 05:58] LABS: Thyroid Stimulating Hormone 32.461 mcIU/mL (0.340-5.600)
[2019-09-13] MEDS: *HR* HYDROcodone/Acet 5/325 mg TABLET GTUBE PRN (06:44)
[2019-09-13] MEDS: Furosemide 40 MG TABLET PO SCH (09:55)
[2019-09-13] MEDS: Ascorbic Acid 500 MG TABLET PO SCH ×2 (09:55→21:05)
[2019-09-13] MEDS: carvediloL 6.25 MG TABLET PO SCH ×2 (09:55→16:19)
[2019-09-13] MEDS: Thyroid (Amour) 30 MG TABLET PO SCH ×3 (09:55→21:04)
[2019-09-13] MEDS: Acetaminophen 325 MG TABLET PO PRN ×2 (09:55→21:04)
[2019-09-13] MEDS: Lactobacillus 1 EACH CAP.SPRINK PO SCH ×2 (09:55→21:05)
[2019-09-13] MEDS: Trolamine Salicylate/Aloe Vera 85 APPL/85 GM TUBE TP SCH (09:56)
[2019-09-13] MEDS: levoFLOXacin 750 MG/150 ML 750 MG/150 ML BAG IVPB SCH (12:08)
[2019-09-13] MEDS: ALPRAZolam 0.25 MG TABLET PO PRN (21:04)
[2019-09-13] MEDS: traZODone 50 MG TABLET PO PRN (21:05)
[2019-09-13] MEDS: Melatonin 3 MG TABLET PO SCH (21:05)
[2019-09-13] MEDS: Celecoxib 100 MG CAPSULE PO SCH (21:05)
[2019-09-14] MEDS: *HR* Heparin 5,000 UNIT/ML VIAL SQ SCH ×3 (06:25→21:29)
[2019-09-14] MEDS: Thyroid (Amour) 30 MG TABLET PO SCH ×3 (08:50→21:29)
[2019-09-14] MEDS: Furosemide 40 MG TABLET PO SCH (08:50)
[2019-09-14] MEDS: Lactobacillus 1 EACH CAP.SPRINK PO SCH ×2 (08:50→21:29)
[2019-09-14] MEDS: carvediloL 6.25 MG TABLET PO SCH ×2 (08:51→17:08)
[2019-09-14] MEDS: Ascorbic Acid 500 MG TABLET PO SCH ×2 (08:51→21:29)
[2019-09-14] MEDS: Acetaminophen 325 MG TABLET PO PRN ×2 (08:51→18:11)
[2019-09-14] MEDS: Trolamine Salicylate/Aloe Vera 85 APPL/85 GM TUBE TP SCH (08:51)
[2019-09-14] MEDS: levoFLOXacin 750 MG/150 ML 750 MG/150 ML BAG IVPB SCH (12:01)
[2019-09-14] MEDS: *HR* HYDROcodone/Acet 5/325 mg TABLET PO PRN (12:12)
[2019-09-14] MEDS: Melatonin 3 MG TABLET PO SCH (21:29)
[2019-09-14] MEDS: Celecoxib 100 MG CAPSULE PO SCH (21:29)
[2019-09-15] MEDS: Micafungin 100 MG in 0.9 % Sodium Chloride Mini Bag 100 ML IVPB SCH ×2 (00:03→21:43)
[2019-09-15] MEDS: Ondansetron 4 MG/2 ML VIAL IVP PRN ×2 (04:20→23:50)
[2019-09-15] MEDS: *HR* Heparin 5,000 UNIT/ML VIAL SQ SCH ×3 (06:19→21:47)
[2019-09-15] MEDS ORDERED: Ascorbic Acid 500 MG TABLET PO SCH (09:00)
[2019-09-15] MEDS: Lactobacillus 1 EACH CAP.SPRINK PO SCH ×2 (09:08→21:50)
[2019-09-15] MEDS: Trolamine Salicylate/Aloe Vera 85 APPL/85 GM TUBE TP SCH (09:09)
[2019-09-15] MEDS: Furosemide 40 MG TABLET PO SCH (09:09)
[2019-09-15] MEDS: Thyroid (Amour) 30 MG TABLET PO SCH ×3 (09:09→21:50)
[2019-09-15] MEDS: Cyanocobalamin (B-12) 1,000 MCG TABLET PO SCH (09:09)
[2019-09-15] MEDS: Ascorbic Acid 500 MG TABLET PO SCH ×2 (09:09→21:50)
[2019-09-15] MEDS: carvediloL 6.25 MG TABLET PO SCH ×2 (09:09→18:02)
[2019-09-15] MEDS: Iron Sucrose Complex 200 MG in 0.9 % Sodium Chloride 100 ML IVPB SCH (09:33)
[2019-09-15] MEDS: Acetaminophen 325 MG TABLET PO PRN ×2 (14:59→21:50)
[2019-09-15] MEDS: traZODone 50 MG TABLET PO PRN (21:50)
[2019-09-15] MEDS: Celecoxib 100 MG CAPSULE PO SCH (21:50)
[2019-09-15] MEDS: Melatonin 3 MG TABLET PO SCH (21:50)
[2019-09-15] MEDS: ALPRAZolam 0.25 MG TABLET PO PRN (21:50)
[2019-09-16] MEDS: *HR* Heparin 5,000 UNIT/ML VIAL SQ SCH ×3 (06:09→20:56)
[2019-09-16] MEDS: Trolamine Salicylate/Aloe Vera 85 APPL/85 GM TUBE TP SCH (09:48)
[2019-09-16] MEDS: carvediloL 6.25 MG TABLET PO SCH ×2 (09:48→15:21)
[2019-09-16] MEDS: Ascorbic Acid 500 MG TABLET PO SCH ×2 (09:48→20:59)
[2019-09-16] MEDS: Thyroid (Amour) 30 MG TABLET PO SCH ×3 (09:48→20:59)
[2019-09-16] MEDS: Furosemide 40 MG TABLET PO SCH (09:48)
[2019-09-16] MEDS: Lactobacillus 1 EACH CAP.SPRINK PO SCH ×2 (09:48→20:59)
[2019-09-16] MEDS: Cyanocobalamin (B-12) 1,000 MCG TABLET PO SCH (09:48)
[2019-09-16] MEDS: Iron Sucrose Complex 200 MG in 0.9 % Sodium Chloride 100 ML IVPB SCH (09:53)
[2019-09-16] MEDS: Micafungin 100 MG in 0.9 % Sodium Chloride Mini Bag 100 ML IVPB SCH (20:52)
[2019-09-16] MEDS: Acetaminophen 325 MG TABLET PO PRN (21:00)
[2019-09-16] MEDS: traZODone 50 MG TABLET PO PRN (21:00)
[2019-09-16] MEDS: Celecoxib 100 MG CAPSULE PO SCH (21:00)
[2019-09-16] MEDS: Melatonin 3 MG TABLET PO SCH (21:00)
[2019-09-17] MEDS: Acetaminophen 325 MG TABLET PO PRN ×2 (05:07→22:42)
[2019-09-17] MEDS: *HR* Heparin 5,000 UNIT/ML VIAL SQ SCH ×3 (05:07→22:35)
[2019-09-17] MEDS: Thyroid (Amour) 30 MG TABLET PO SCH ×2 (10:09→22:35)
[2019-09-17] MEDS: Ascorbic Acid 500 MG TABLET PO SCH ×2 (10:09→22:35)
[2019-09-17] MEDS: Lactobacillus 1 EACH CAP.SPRINK PO SCH ×2 (10:09→22:35)
[2019-09-17] MEDS: Cyanocobalamin (B-12) 1,000 MCG TABLET PO SCH (10:10)
[2019-09-17] MEDS: carvediloL 6.25 MG TABLET PO SCH ×2 (10:10→17:52)
[2019-09-17] MEDS: Furosemide 40 MG TABLET PO SCH (10:10)
[2019-09-17] MEDS: Trolamine Salicylate/Aloe Vera 85 APPL/85 GM TUBE TP SCH (10:10)
[2019-09-17] MEDS: Iron Sucrose Complex 200 MG in 0.9 % Sodium Chloride 100 ML IVPB SCH (10:18)
[2019-09-17] MEDS: Ondansetron 4 MG/2 ML VIAL IVP PRN (18:36)
[2019-09-17] MEDS: Micafungin 100 MG in 0.9 % Sodium Chloride Mini Bag 100 ML IVPB SCH (22:34)
[2019-09-17] MEDS: Melatonin 3 MG TABLET PO SCH (22:35)
[2019-09-17] MEDS: Celecoxib 100 MG CAPSULE PO SCH (22:35)
[2019-09-18] MEDS: *HR* Heparin 5,000 UNIT/ML VIAL SQ SCH ×4 (05:43→21:52)
[2019-09-18] MEDS: *HR* HYDROcodone/Acet 5/325 mg TABLET GTUBE PRN ×3 (05:43→18:11)
[2019-09-18 06:06] LABS: Basophils # 0.1 K/mcL (0.0-0.2); Basophils % 1.1 %; Eosinophils # 0.4 K/mcL (0.0-0.6); Eosinophils % 4.1 %; Hematocrit 28.6 % (37.5-50.1); Hemoglobin 9.2 g/dL (12.9-16.9); Immature Granulocytes % 1.9 % (0-4); Lymphocytes # 3.3 K/mcL (0.6-4.6); Lymphocytes % 32.9 %; Mean Corpuscular HGB Conc 32.2 g/dL (31.6-35.5); Mean Corpuscular Hemoglobin 26.8 pg (28.0-33.3); Mean Corpuscular Volume 83.4 fL (83.0-100.0); Mean Platelet Volume 8.6 fL (9.4-12.4); Monocytes # 1.6 K/mcL (0.0-1.3); Monocytes % 15.5 %; Neutrophils # 4.5 K/mcL (1.6-8.9); Platelet Count 277 K/mcL (140-400); Red Blood Count 3.43 M/mcL (4.19-5.50); Red Cell Distribution Width 17.2 % (11.5-14.5); Segmented Neutrophils % 44.5 %; White Blood Count 10.1 K/mcL (4.3-11.1)
[2019-09-18 06:25] LABS: Alanine Aminotransferase 24 Units/L (7-52); Albumin 2.7 g/dL (3.5-5.7); Albumin/Globulin Ratio 0.8 (1.1-2.2); Alkaline Phosphatase 121 Units/L (34-104); Aspartate Amino Transferase 21 Units/L (13-39); BUN/Creatinine Ratio 13 (6-26); Bilirubin,Total 0.4 mg/dL (0.3-1.0); Blood Urea Nitrogen 9 mg/dL (8-23); Calcium 8.9 mg/dL (8.6-10.3); Carbon Dioxide 30 mEq/L (23-29); Chloride 92 mEq/L (98-107); Globulin 3.4 g/dL (2.4-3.5); Glucose 93 mg/dL (70-105); Osmolality,Calculated 268 (280-300); Potassium 3.6 mEq/L (3.5-5.1); Sodium 130 mEq/L (136-145); Total Protein 6.1 g/dL (6.4-8.9); eGFR For African Americans > 60 (> 60); eGFR For Non-African Americans > 60 (> 60)
[2019-09-18 06:49] LABS: Anisocytosis 1+ (Not Present); Platelet Estimate Normal (Normal)
[2019-09-18] MEDS: Thyroid (Amour) 30 MG TABLET PO SCH ×2 (10:24→21:51)
[2019-09-18] MEDS: Ascorbic Acid 500 MG TABLET PO SCH ×2 (10:24→21:52)
[2019-09-18] MEDS: Furosemide 40 MG TABLET PO SCH (10:24)
[2019-09-18] MEDS: carvediloL 6.25 MG TABLET PO SCH ×2 (10:24→18:01)
[2019-09-18] MEDS: Lactobacillus 1 EACH CAP.SPRINK PO SCH ×2 (10:24→21:51)
[2019-09-18] MEDS: Cyanocobalamin (B-12) 1,000 MCG TABLET PO SCH (10:24)
[2019-09-18] MEDS: Trolamine Salicylate/Aloe Vera 85 APPL/85 GM TUBE TP SCH (10:28)
[2019-09-18] MEDS: Melatonin 3 MG TABLET PO SCH (21:51)
[2019-09-18] MEDS: Celecoxib 100 MG CAPSULE PO SCH (21:51)
[2019-09-18] MEDS: ALPRAZolam 0.25 MG TABLET PO PRN (21:52)
[2019-09-18] MEDS: traZODone 50 MG TABLET PO PRN (21:52)
[2019-09-18] MEDS: Acetaminophen 325 MG TABLET PO PRN (21:53)
[2019-09-18] MEDS: Micafungin 100 MG in 0.9 % Sodium Chloride Mini Bag 100 ML IVPB SCH (21:54)
[2019-09-19] MEDS: *HR* Heparin 5,000 UNIT/ML VIAL SQ SCH ×3 (06:41→23:44)
[2019-09-19] MEDS ORDERED: levoFLOXacin 750 MG/150 ML 750 MG/150 ML BAG IVPB SCH (09:30)
[2019-09-19] MEDS: Lactobacillus 1 EACH CAP.SPRINK PO SCH ×2 (09:56→23:43)
[2019-09-19] MEDS: Cyanocobalamin (B-12) 1,000 MCG TABLET PO SCH (09:56)
[2019-09-19] MEDS: carvediloL 6.25 MG TABLET PO SCH ×2 (09:56→16:53)
[2019-09-19] MEDS: Thyroid (Amour) 30 MG TABLET PO SCH ×2 (09:56→23:42)
[2019-09-19] MEDS: Ascorbic Acid 500 MG TABLET PO SCH ×2 (09:56→23:43)
[2019-09-19] MEDS: Trolamine Salicylate/Aloe Vera 85 APPL/85 GM TUBE TP SCH (09:56)
[2019-09-19] MEDS: Furosemide 40 MG TABLET PO SCH (09:56)
[2019-09-19] MEDS: Iron Sucrose Complex 200 MG in 0.9 % Sodium Chloride 100 ML IVPB SCH (10:11)
[2019-09-19] MEDS: levoFLOXacin 750 MG/150 ML 750 MG/150 ML BAG IVPB SCH (11:14)
[2019-09-19] MEDS: Ondansetron 4 MG/2 ML VIAL IVP PRN ×2 (14:34→20:40)
[2019-09-19] MEDS: Celecoxib 100 MG CAPSULE PO SCH (23:42)
[2019-09-19] MEDS: Micafungin 100 MG in 0.9 % Sodium Chloride Mini Bag 100 ML IVPB SCH (23:43)
[2019-09-19] MEDS: Acetaminophen 325 MG TABLET PO PRN (23:43)
[2019-09-19] MEDS: Melatonin 3 MG TABLET PO SCH (23:44)
[2019-09-20] MEDS: Thyroid (Amour) 30 MG TABLET PO SCH ×2 (08:27→22:30)
[2019-09-20] MEDS: Ascorbic Acid 500 MG TABLET PO SCH ×2 (08:27→22:31)
[2019-09-20] MEDS: carvediloL 6.25 MG TABLET PO SCH ×2 (08:27→17:20)
[2019-09-20] MEDS: levoFLOXacin 750 MG/150 ML 750 MG/150 ML BAG IVPB SCH (08:28)
[2019-09-20] MEDS: Furosemide 40 MG TABLET PO SCH (08:28)
[2019-09-20] MEDS: Lactobacillus 1 EACH CAP.SPRINK PO SCH ×2 (08:28→22:31)
[2019-09-20] MEDS: *HR* Heparin 5,000 UNIT/ML VIAL SQ SCH ×3 (08:28→22:31)
[2019-09-20] MEDS: Cyanocobalamin (B-12) 1,000 MCG TABLET PO SCH (08:28)
[2019-09-20] MEDS: Trolamine Salicylate/Aloe Vera 85 APPL/85 GM TUBE TP SCH (08:32)
[2019-09-20 11:37] LABS: Basophils # 0.1 K/mcL (0.0-0.2); Basophils % 0.6 %; Eosinophils # 0.3 K/mcL (0.0-0.6); Eosinophils % 2.4 %; Hematocrit 25.3 % (37.5-50.1); Hemoglobin 8.2 g/dL (12.9-16.9); Immature Granulocytes % 1.3 % (0-4); Lymphocytes # 2.7 K/mcL (0.6-4.6); Lymphocytes % 21.8 %; Mean Corpuscular HGB Conc 32.4 g/dL (31.6-35.5); Mean Corpuscular Hemoglobin 27.4 pg (28.0-33.3); Mean Corpuscular Volume 84.6 fL (83.0-100.0); Mean Platelet Volume 8.7 fL (9.4-12.4); Monocytes # 1.2 K/mcL (0.0-1.3); Monocytes % 9.7 %; Platelet Count 309 K/mcL (140-400); Red Blood Count 2.99 M/mcL (4.19-5.50); Red Cell Distribution Width 17.7 % (11.5-14.5); Segmented Neutrophils % 64.2 %; White Blood Count 12.2 K/mcL (4.3-11.1)
[2019-09-20 11:48] LABS: Neutrophils # 7.8 K/mcL (1.6-8.9)
[2019-09-20 11:52] LABS: Bilirubin,Urine Negative (Negative); Blood,Urine Small (Negative); Clarity,Urine Clear (Clear); Color,Urine Yellow (Yellow); Glucose,Urine (UA) Normal (Normal); Ketones,Urine Negative (Negative); Leukocyte Esterase,Urine Negative (Negative); Nitrite,Urine Negative (Negative); Protein,Urine Negative (Neg-Trace); Urobilinogen,Urine Normal (Normal)
[2019-09-20] MEDS: Ondansetron 4 MG/2 ML VIAL IVP PRN ×2 (14:53→22:25)
[2019-09-20] MEDS: Piperacillin/Tazobactam 3.375 GM in D5% in Water (Mini-Bag+) 100 ML IVPB SCH ×2 (15:34→23:35)
[2019-09-20] MEDS ORDERED: Piperacillin/Tazobactam 3.375 GM in D5% in Water (Mini-Bag+) 100 ML IVPB SCH (18:00)
[2019-09-20] MEDS: Melatonin 3 MG TABLET PO SCH (22:31)
[2019-09-20] MEDS: Celecoxib 100 MG CAPSULE PO SCH (22:31)
[2019-09-20] MEDS: ALPRAZolam 0.25 MG TABLET PO PRN (22:32)
[2019-09-20] MEDS: Micafungin 100 MG in 0.9 % Sodium Chloride Mini Bag 100 ML IVPB SCH (22:32)
[2019-09-20] MEDS: traZODone 50 MG TABLET PO PRN (22:32)
[2019-09-21] MEDS: *HR* Heparin 5,000 UNIT/ML VIAL SQ SCH ×3 (07:07→21:39)
[2019-09-21] MEDS: Piperacillin/Tazobactam 3.375 GM in D5% in Water (Mini-Bag+) 100 ML IVPB SCH ×3 (07:07→22:42)
[2019-09-21] MEDS: Ascorbic Acid 500 MG TABLET PO SCH ×2 (08:28→21:39)
[2019-09-21] MEDS: Furosemide 40 MG TABLET PO SCH (08:28)
[2019-09-21] MEDS: carvediloL 6.25 MG TABLET PO SCH ×2 (08:28→17:13)
[2019-09-21] MEDS: Lactobacillus 1 EACH CAP.SPRINK PO SCH ×2 (08:28→21:38)
[2019-09-21] MEDS: Cyanocobalamin (B-12) 1,000 MCG TABLET PO SCH (08:28)
[2019-09-21] MEDS: Thyroid (Amour) 30 MG TABLET PO SCH ×2 (08:28→21:38)
[2019-09-21] MEDS: levoFLOXacin 750 MG/150 ML 750 MG/150 ML BAG IVPB SCH (08:29)
[2019-09-21] MEDS: Trolamine Salicylate/Aloe Vera 85 APPL/85 GM TUBE TP SCH (08:29)
[2019-09-21] MEDS: Ondansetron 4 MG/2 ML VIAL IVP PRN ×2 (10:40→17:13)
[2019-09-21] MEDS ORDERED: *HR* Promethazine 25 MG/ML VIAL IVP PRN (19:46)
[2019-09-21] MEDS: traZODone 50 MG TABLET PO SCH (21:38)
[2019-09-21] MEDS: Melatonin 3 MG TABLET PO SCH (21:38)
[2019-09-21] MEDS: ALPRAZolam 0.25 MG TABLET PO SCH (21:38)
[2019-09-21] MEDS: Celecoxib 100 MG CAPSULE PO SCH (21:38)
[2019-09-21] MEDS: Micafungin 100 MG in 0.9 % Sodium Chloride Mini Bag 100 ML IVPB SCH (21:40)
[2019-09-22] MEDS: *HR* Heparin 5,000 UNIT/ML VIAL SQ SCH (07:06)
[2019-09-22] MEDS: Piperacillin/Tazobactam 3.375 GM in D5% in Water (Mini-Bag+) 100 ML IVPB SCH ×3 (07:07→22:56)
[2019-09-22] MEDS: Thyroid (Amour) 30 MG TABLET PO SCH ×2 (09:13→20:59)
[2019-09-22] MEDS: Cyanocobalamin (B-12) 1,000 MCG TABLET PO SCH (09:14)
[2019-09-22] MEDS: Ascorbic Acid 500 MG TABLET PO SCH ×2 (09:14→21:03)
[2019-09-22] MEDS: Furosemide 40 MG TABLET PO SCH (09:14)
[2019-09-22] MEDS: carvediloL 6.25 MG TABLET PO SCH ×2 (09:14→16:01)
[2019-09-22] MEDS: Lactobacillus 1 EACH CAP.SPRINK PO SCH ×2 (09:14→21:02)
[2019-09-22] MEDS: Trolamine Salicylate/Aloe Vera 85 APPL/85 GM TUBE TP SCH (09:16)
[2019-09-22] MEDS: levoFLOXacin 750 MG/150 ML 750 MG/150 ML BAG IVPB SCH (11:10)
[2019-09-22] MEDS: Celecoxib 100 MG CAPSULE PO SCH (21:00)
[2019-09-22] MEDS: Melatonin 3 MG TABLET PO SCH (21:02)
[2019-09-22] MEDS: traZODone 50 MG TABLET PO SCH (21:03)
[2019-09-22] MEDS: ALPRAZolam 0.25 MG TABLET PO SCH (21:04)
[2019-09-22] MEDS: Micafungin 100 MG in 0.9 % Sodium Chloride Mini Bag 100 ML IVPB SCH (21:05)
[2019-09-23] MEDS: Piperacillin/Tazobactam 3.375 GM in D5% in Water (Mini-Bag+) 100 ML IVPB SCH (06:26)
[2019-09-23 07:02] VITALS: BP 110/63
[2019-09-23] MEDS: Cyanocobalamin (B-12) 1,000 MCG TABLET PO SCH (08:07)
[2019-09-23] MEDS: carvediloL 6.25 MG TABLET PO SCH (08:07)
[2019-09-23] MEDS: Ascorbic Acid 500 MG TABLET PO SCH (08:07)
[2019-09-23] MEDS: Lactobacillus 1 EACH CAP.SPRINK PO SCH (08:07)
[2019-09-23] MEDS: Thyroid (Amour) 30 MG TABLET PO SCH (08:07)
[2019-09-23] MEDS: Trolamine Salicylate/Aloe Vera 85 APPL/85 GM TUBE TP SCH (08:08)
[2019-09-23] MEDS: Furosemide 40 MG TABLET PO SCH (08:26)
[2019-09-23] MEDS: levoFLOXacin 750 MG/150 ML 750 MG/150 ML BAG IVPB SCH (10:07)
== END 2019-09-23 16:27 | disposition other institution (70) | DRG 949 ==
LOC: INPGRE 08-29 14:13